=== PATIENT | male | born 1990 | race American Indian/Alaskan Native ===

== ENCOUNTER 2016-11-06 18:05 | Emergency (ER) | payer SELFPAY ==
--- NOTE | 2016-11-06 19:32 | Emergency Department Report ---
Chief Complaint: Headache Stated Complaint: HEADACHE Time Seen by Provider: 11/06/16 19:18 - HPI History of Present Illness: Patient is a 26-year-old male with no prior medical history who presents to ED complaining of headache 4 days. Patient states his pain has been 9 frontal and left temporal, sharp, and rates in, 7 out of 10 intensity type headache since Thursday. Patient admits intermittent nausea with one episode of vomiting on Thursday and no other episodes since then. Patient states sometimes gets dizzy when he is given a headache. Patient can't recall anything that makes it better or makes it worse. She states he's taken Tylenol with no relief. Patient states this is a first episode of this. Patient denies fevers/chills/vomiting/diarrhea assessments patient's shortness of breath as chest pain. - ROS Review of Systems: As noted in HPI - Exam Vital Signs: Vital Signs 11/06/16 18:59 Temperature 98.5 F Pulse Rate 92 H Respiratory 18 Rate Blood Pressure 105/67 O2 Sat by Pulse 100 Oximetry Physical Exam: GENERAL: Alert and oriented x3, no apparent distress, Normal Gait, atraumatic. HEAD: Head is normocephalic and a-traumatic. EYES: Extra ocular muscles are intact. Pupils are equal, round, and reactive to light and accommodation. NECK: Supple. Non edematous, No carotid bruits. No lymphadenopathy or thyromegaly. LUNGS: Symetrical with respiration, No wheezing, no rales or crackles, CTAB. HEART: S1, S2 present, regular rate and rhythm without murmur, no rubs, no gallops. MSE screening note: Focused history and physical exam performed. Due to findings the following was ordered: ED Medical Decision Making - Medical Decision Making 26-year-old male presents with migraine. Patient to be Reassessed by [facility] providers ED Disposition for MSE Condition: Stable
[2016-11-07] MEDS ORDERED: NACL 0.9% 1000 ML 1,000 ML IV ONE (00:53)
[2016-11-07] MEDS ORDERED: REGLAN IV ONE (00:53)
[2016-11-07] MEDS ORDERED: TYLENOL PO ONE (01:06)
--- NOTE | 2016-11-07 01:44 | Cat Scan Report ---
FINAL REPORT PROCEDURE: CT HEAD/BRAIN WO CON TECHNIQUE: Computerized tomography of the head was performed without contrast material. HISTORY: headache COMPARISON: No prior studies are available for comparison. FINDINGS: Skull and scalp: Normal. Paranasal sinuses: Normal. Ventricles and subarachnoid spaces: Normal. Cerebrum: No evidence of hemorrhage, acute infarction or mass . Cerebellum and brainstem: No evidence of hemorrhage, acute infarction or mass. Vasculature: Normal. Comments: None. IMPRESSION: Normal Examination
[2016-11-07] MEDS ORDERED: TORADOL IV ONE (02:34)
--- NOTE | 2016-11-07 02:42 | Emergency Department Report ---
HPI - General Chief Complaint: Headache Time Seen by Provider: 11/07/16 00:53 - HPI HPI: The patient is a 26-year-old male who presents for evaluation of headache. The patient reports 5 days of constant headache, 10/10 in severity, throbbing in quality, exacerbated with bright lights, and associated with nausea, nonbilious , nonbloody emesis. He states that his pain has awakened him out of his sleep, and that his pains are worse headache of his life. The patient denies fever, head injury, neck pain, neck stiffness, vision or hearing changes, smell or taste changes, paresthesias, facial drooping, slurred speech, motor deficit in the arms or legs, seizure-like activity, urine or bowel incontinence or retention, or other focal neurological deficit. ED Past Medical Hx - Past Medical History Previous Medical History?: No - Surgical History Past Surgical History?: No - Social History Smoking Status: Current Every Day Smoker Substance Use Type: None - Medications Home Medications: Home Medications Medication Instructions Recorded Confirmed Last Taken Type HYDROcodone/APAP 5-325 [[place] 1 each PO Q6HR PRN #12 tablet 11/07/16 Unknown Rx 5/325] Ondansetron [Zofran TAB] 4 mg PO Q8HR PRN #14 tablet 11/07/16 Unknown Rx ED Review of Systems ROS: Stated complaint: HEADACHE Other details as noted in HPI Constitutional: denies: fever ENT: denies: throat or neck pain Respiratory: denies: cough, shortness of breath Cardiovascular: denies: chest pain Endocrine: denies unexplained weight loss or gain Gastrointestinal: denies: abdominal pain reports nausea Genitourinary: denies: dysuria Musculoskeletal: denies: leg swelling Skin: denies: rash Neurological: reports headache Hematological/Lymphatic: denies: easy bleeding or easy bruising Psych: denies sadness or hopelessness Physical Exam - Physical Exam Vital Signs: Vital Signs 11/06/16 11/07/16 18:59 01:52 Temperature 98.5 F 97.5 F L Pulse Rate 92 H 84 Respiratory 18 14 Rate Blood Pressure 105/67 Blood Pressure 125/84 [Left] O2 Sat by Pulse 100 99 Oximetry Physical Exam: General: well-nourished, well-developed, no acute distress Head: Normocephalic, atraumatic Eyes: normal sclera, PERRL, EOM intact ENT: Mucous membranes are pale and dry Neck: No neck stiffness, no cervical adenopathy Respiratory: Breath sounds equal bilaterally, no wheezing, rales, or rhonchi Cardio: S1 and S2 present, no murmurs, rubs, gallops, capillary refill is delayed Abdomen: Normoactive bowel sounds, soft abdomen, no rigidity, no guarding or rebound tenderness Musc: No pitting edema Skin: No rash Neuro: alert oriented x4, normal cognition, speech normal, no facial drooping, no uvula or tongue deviation on protrusion, no deficit with rotation of neck or shoulder shrug, no obvious gross motor deficit in the upper or lower extremities with flexion or extension at the shoulder, elbow, wrist, hip, knee, or ankle bilaterally, no obvious gross sensation deficit to crude touch or 2 pt discrimination, 2+ symmetric reflexes on DTR testing, no coordination deficit with [id number] or [id number] testing, romberg negative, patient able to to ambulate without abnormal gait, Kernig and Brudzinski negative Psych: Normal affect ED Course Vital Signs 11/06/16 11/07/16 18:59 01:52 Temperature 98.5 F 97.5 F L Pulse Rate 92 H 84 Respiratory 18 14 Rate Blood Pressure 105/67 Blood Pressure 125/84 [Left] O2 Sat by Pulse 100 99 Oximetry ED Medical Decision Making - Medical Decision Making The patient was seen and examined by myself. The patient is placed on a cardiac sonographer and continuous pulse ox. On initial evaluation, the patient was found to be in no distress. As the patient has experienced severe pain, described as the worse headache of his life, awakening him out of his sleep, a CAT scan of the head will be obtained. IV access is established and the patient is given 1 L normal saline fluid bolus for treatment of dehydration, and IV Reglan and a tablet of Tylenol for headache. CT scan of the head is negative for acute intracranial disease process. The patient was reevaluated and reported that his pain was improved but persisted. He is given an IV dose of Toradol for his pain. The patient was again reevaluated and reported that his pain was resolved. The patient is stable for discharge with outpatient follow-up. The patient is given follow-up and return instructions. The patient expressed understanding and agreed with the plan. The patient is discharged in stable condition. Critical care attestation.: If time is entered above; I have spent that time in minutes in the direct care of this critically ill patient, excluding procedure time. ED Disposition Clinical Impression: Dehydration, Nausea and vomiting in adult patient Acute nonintractable headache Qualifiers: Headache type: tension-type Qualified Code(s): G44.209 - Tension-type headache , unspecified, not intractable Disposition: DISCHARGED TO HOME OR SELFCARE Is pt being admited?: No Does the pt Need Aspirin: No Condition: Stable Instructions: Acute Headache (ED) Prescriptions: HYDROcodone/APAP 5-325 [[place] 5/325] 1 each PO Q6HR PRN #12 tablet PRN Reason: Pain Ondansetron [Zofran TAB] 4 mg PO Q8HR PRN #14 tablet PRN Reason: Nausea Referrals: PRIMARY CARE, [Primary Care Provider] - 3-5 Days Time of Disposition: 02:34
[2016-11-07 03:03] VITALS: BP 116/80
== END 2016-11-07 03:05 | disposition home or self-care (01) ==
LOC: ED 18:05
DX: G44.209 Tension-type headache, unspecified, not intractable (principal); E86.0 Dehydration; F17.200 Nicotine dependence, unspecified, uncomplicated
CPT/HCPCS: 70450; 96361; 96374; 96375; 99284; J1885; J2765; J7030